=== PATIENT | female | born 1965 | race Caucasian/White ===

== ENCOUNTER 2016-10-15 07:08 | Day surgery (SDC) | payer BC ==
[2016-10-15] VITALS (7 sets, daily range): BP systolic 111–135; BP diastolic 64–80
[~2016-10-15] VITALS: Ht 162.6 cm; Wt 90.7 kg
[~2016-10-15 07:08] MED LIST: acetaminophen OR
[2016-10-15] MEDS ORDERED: LR 1,000 ML IV SCH ×3 (07:30→13:45)
[2016-10-15 07:38] LABS: MEAN CORPUSCULAR HEMOGLOBIN 29.6 pg (27.0-33.0); MEAN CORPUSCULAR VOLUME 89.5 fl (80.0-96.0); RED CELL DISTRIBUTION WIDTH 12.5 % (11.5-14.5); WHITE BLOOD COUNT 4.6 K/mm3 (4.0-10.0)
[2016-10-15] MEDS ORDERED: fentaNYL 100 MCG/2 ML INJECTION (J3010) As Ordered ONE ×2 (10:57→13:11)
[2016-10-15] MEDS ORDERED: MIDAZOLAM INJ 2 MG/2 ML VIAL (J2250) As Ordered ONE (10:57)
[2016-10-15] MEDS ORDERED: ONDANSETRON 4MG/2ML VIAL (J2405) As Ordered ONE (11:06)
[2016-10-15] MEDS ORDERED: ROCURONIUM BROMIDE 50 MG/5 ML VIAL As Ordered ONE (11:06)
[2016-10-15] MEDS ORDERED: METOCLOPRAMIDE INJ 10MG/2ML VIAL (J2765) As Ordered ONE (11:06)
[2016-10-15] MEDS ORDERED: LIDOCAINE 2% INJ 100 MG/5 ML SDV (FOR ANES.) As Ordered ONE (11:06)
[2016-10-15] MEDS ORDERED: KETOROLAC 60 MG/2 ML VIAL (J1885) As Ordered ONE (11:06)
[2016-10-15] MEDS ORDERED: dexameTHASONE 4 MG/ML 1ML VIAL (J1100) As Ordered ONE (11:06)
[2016-10-15] MEDS ORDERED: PROPOFOL 500 MG/50 ML VIAL As Ordered ONE (11:08)
[2016-10-15] MEDS ORDERED: HYDROmorphone HCL 2 MG/ML 1ML VIAL (J1170) As Ordered ONE (11:20)
[2016-10-15] MEDS ORDERED: MORPHINE PCA 1MG/ML 100ML CADD As Ordered ONE (13:11)
[2016-10-15] MEDS ORDERED: fentaNYL 100 MCG/2 ML INJECTION (J3010) IV PRN (13:45)
[2016-10-15] MEDS ORDERED: diphenhydrAMINE INJ 50MG/ML VIAL (J1200) IV PRN (13:45)
[2016-10-15] MEDS ORDERED: NALBUPHINE HCL 10 MG/ML AMP (J2300) IV PRN (13:45)
[2016-10-15] MEDS ORDERED: ONDANSETRON 4MG/2ML VIAL (J2405) IV PRN ×2 (13:45)
[2016-10-15] MEDS ORDERED: NALOXONE INJ 0.4 MG/1 ML VIAL (J2310) IV PRN (13:45)
[2016-10-15] MEDS: LR 1,000 ML IV SCH (13:45)
[2016-10-15] MEDS ORDERED: IBUPROFEN 600 MG TAB PO PRN ×2 (13:45→19:00)
[2016-10-15] MEDS ORDERED: PERCOCET 5MG/325MG TAB PO PRN (13:45)
[2016-10-15] MEDS ORDERED: MORPHINE PCA 1MG/ML 100ML CADD IV PRN (13:45)
[2016-10-15] MEDS ORDERED: EPIDURAL/PCA KEYS XX PRN (13:45)
[2016-10-16] VITALS: BP 107/57
[2016-10-16] MEDS: LR 1,000 ML IV SCH ×2 (00:41→06:41)
[2016-10-16 04:00] VITALS: BP 111/55
[2016-10-16] MEDS ORDERED: NORCO, ANEXSIA 5/325MG TABLET (HYDROcodone/ACETAMINOPHEN) PO PRN (06:00)
--- NOTE | 2016-10-16 07:21 | RO ---
DATE OF PROCEDURE: 10/15/2016 PREPROCEDURE DIAGNOSES: Dysmenorrhea, menorrhagia, tender uterus. POSTPROCEDURE DIAGNOSES: Dysmenorrhea, menorrhagia, tender uterus with possible fundal fibroid or other finding. PROCEDURE: Total vaginal hysterectomy with bilateral salpingo-oophorectomy. SURGEON: Dr. Katrina Ryder. LUBE ATTENDANT: Gaby Ashford. ANESTHESIA: General endotracheal anesthesia. ESTIMATED BLOOD LOSS: BRIEF DESCRIPTION OF PROCEDURE AND FINDINGS: Sonia was brought to the operating room where sufficient general endotracheal anesthesia was induced. She was prepped, draped and positioned in the usual sterile fashion with the weighted speculum placed, the bladder emptied and the anterior aspect of the cervix grasped with single tooth tenaculum. The posterior aspect grasped with single tooth tenaculum as well and a circumferential incision was made around the base of the cervix. Sharp and blunt dissection were continued until the cardinal ligaments could be isolated, clamped, transected and ligated using #0 Vicryl suture which we used throughout. The uterosacrals were then clamped, transected and ligated and of course marked for later re-attachment to cuff and posterior reflection of the peritoneum entered. Dissection was continued anteriorly to enter into the peritoneum anteriorly so that the bladder could be displaced anteriorly and the rectum displaced posteriorly and then the uterine vasculature isolated at the lateral aspect of the uterus. It was carefully clamped, transected and ligated in a sequential fashion until the level of the utero-ovarian ligaments was reached. The uterus was fairly bulky and so we went ahead and continued the dissection through the broad ligament, through the round and utero-ovarian suspensory ligament and then removed the uterus and then went back to the pedicles and carefully using [place] clamps, brought the tubes and ovaries down and the infundibulopelvic ligaments were carefully clamped, transected and ligated and visually watched. There was dry pedicles at the infundibulopelvic. Both ovaries and tubes were attainable and were sent as had been the patient's hope and angle stitches of #0 Vicryl were then taken. Of course, the ureterosacrals were reattached and the vaginal cuff closed in a running locked stitch in the usual fashion with good support and hemostasis achieved. The procedure was then ended. Dawn was placed postoperatively. Estimated blood loss for the case was about 250. Fluid replacement was Crystalloid. Complications: None. CONDITION AND DISPOSITION: Sonia tolerated the procedure well and was recovering in the recovery room in good condition.
[2016-10-16 07:33] LABS: MEAN CORPUSCULAR HEMOGLOBIN 30.6 pg (27.0-33.0); MEAN CORPUSCULAR HGB CONC 33.9 g/dl (32.0-36.5); MEAN CORPUSCULAR VOLUME 90.1 fl (80.0-96.0); RED CELL DISTRIBUTION WIDTH 12.6 % (11.5-14.5); WHITE BLOOD COUNT 9.3 K/mm3 (4.0-10.0)
[2016-10-16 08:00] VITALS: BP 115/65
[2016-10-16] MEDS ORDERED: NORC5TAB PO (09:07)
[2016-10-16] MEDS ORDERED: MOTR200T44 PO (09:07)
== END 2016-10-16 09:40 | disposition home or self-care (01) ==
LOC: M SDC 07:08 → M PED 14:07 → M SDC 10-16 09:40
PROVIDERS: ATTEND Obstetrics & Gynecology
DX: N94.6 Dysmenorrhea, unspecified (principal); N92.0 Excessive and frequent menstruation with regular cycle; R06.83 Snoring; Z98.51 Tubal ligation status; Z87.891 Personal history of nicotine dependence; Z88.0 Allergy status to penicillin
CPT/HCPCS: 36415; 58262; 85027; 86850; 86900; 86901; 88309; 96374; J0690; J1100; J1170; J1885; J2250; J2405; J2765; J3010

== ENCOUNTER → 2017-07-30 | Outpatient (REF) | payer BC ==
[~2017-07-30] MED LIST changes: +MOTR200T44 PO; +NORC1TAB4 PO
[2017-07-30 12:30] LABS: BASO % 0.8 % (0.0-1.0); EOS # 0.2 10^3/uL (0.0-0.50); EOS % 3.1 % (0.0-3.0); LYMPH # 1.7 10^3/uL (1.5-4.5); LYMPH % 34.9 % (24.0-44.0); MEAN CORPUSCULAR HGB CONC 32.4 g/dl (32.0-36.5); MEAN CORPUSCULAR VOLUME 92.3 fl (80.0-96.0); MONO # 0.5 10^3/uL (0.0-0.8); MONO % 9.6 % (0.0-5.0); NEUTROPHILS # 2.5 10^3/uL (1.8-7.7); NEUTROPHILS % 51.6 % (36.0-66.0); PLATELET COUNT, AUTOMATED 260 10^3/uL (150-450); RED CELL DISTRIBUTION WIDTH 13.7 % (11.5-14.5); WHITE BLOOD COUNT 4.8 10^3/uL (4.0-10.0)
[2017-07-30 13:01] LABS: ALBUMIN 3.7 GM/DL (3.2-5.2); ALBUMIN/GLOBULIN RATIO 1.03 (1.00-1.93); ALKALINE PHOSPHATASE 122 U/L (45-117); ALT/SGPT 26 U/L (12-78); ANION GAP 6 MEQ/L (8-16); AST/SGOT 19 U/L (7-37); BILIRUBIN,TOTAL 0.4 MG/DL (0.2-1.0); BLOOD UREA NITROGEN 10 MG/DL (7-18); CALCIUM LEVEL 8.9 MG/DL (8.5-10.1); CARBON DIOXIDE LEVEL 28 MEQ/L (21-32); CHLORIDE LEVEL 107 MEQ/L (98-107); CREATININE FOR GFR 0.99 MG/DL (0.55-1.02); FREE T4 1.05 NG/DL (0.76-1.46); GLOMERULAR FILTRATION RATE > 60.0 (>51); GLUCOSE, FASTING 92 MG/DL (70-105); POTASSIUM SERUM 4.4 MEQ/L (3.5-5.1); SODIUM LEVEL 141 MEQ/L (136-145); TOTAL PROTEIN 7.3 GM/DL (6.4-8.2)
[2017-07-30 13:53] LABS: CONTROL LINE MONO RF C INT CTR LINE PRESENT
[2017-08-01 00:06] LABS: Lyme Disease IgG/IgM Antibodie <0.91 ISR (0.00-0.90); Lyme Disease IgM Ab Quantitati <0.80 index (0.00-0.79)
== END ==
LOC: M LABDRWAD 12:03
PROVIDERS: ATTEND Physician Assistant Medical
DX: R51 Headache (principal)

== ENCOUNTER → 2017-10-19 | Outpatient (CLI) | payer BC ==
[2017-10-19 08:07] LABS: CHOLESTEROL LEVEL 161 MG/DL (<200); CHOLESTEROL RISK RATIO 2.875 (<5); HDL CHOLESTEROL 56 MG/DL (>40); LDL CHOLESTEROL 91.2 MG/DL (<100); NON-HDL-C 105 MG/DL; TRIGLYCERIDES LEVEL 69 MG/DL (<150)
[2017-10-19 08:33] LABS: TOTAL 25(OH) VITAMIN D 18.3 NG/ML (30.0-100.0)
[2017-10-19 08:49] LABS: ESTIMATED AVERAGE GLUCOSE 126 MG/DL (60-110)
== END ==
LOC: M LAB 07:04
DX: E66.01 Morbid (severe) obesity due to excess calories (principal); R51 Headache
CPT/HCPCS: 83036

== ENCOUNTER → 2019-08-22 | Outpatient (CLI) | payer BC ==
[~2019-08-22] MED LIST changes: -NORC1TAB4 PO; +NORC1TAB7 PO
--- NOTE | 2019-08-22 14:59 | REP ---
Clinical: Pain. Technique: AP, lateral, bilateral oblique views of the left foot. Findings: Generalized age-related changes are appreciated primarily involving the midfoot. Lateral view demonstrates small calcaneal heal spur. No acute fracture dislocation. Metatarsal and interphalangeal joints appear normal. Impression: Essentially age-appropriate examination. Electronically Signed by Anjel Ortiz MD 08/22/2019 02:51 P
[2019-08-22 17:07] LABS: BASO % 0.6 % (0.0-1.0); EOS # 0.2 10^3/uL (0.0-0.5); EOS % 2.6 % (0.0-3.0); HEMATOCRIT 40.5 % (36.0-47.0); HEMOGLOBIN 13.3 g/dl (12.0-15.5); LYMPH # 2.2 10^3/uL (1.5-5.0); LYMPH % 35.1 % (24.0-44.0); MEAN CORPUSCULAR HEMOGLOBIN 30.7 pg (27.0-33.0); MEAN CORPUSCULAR HGB CONC 32.8 g/dl (32.0-36.5); MEAN CORPUSCULAR VOLUME 93.5 fl (80.0-96.0); MONO # 0.6 10^3/uL (0.0-0.8); MONO % 9.1 % (0.0-5.0); NEUTROPHILS # 3.2 10^3/uL (1.5-8.5); NEUTROPHILS % 52.4 % (36.0-66.0); PLATELET COUNT, AUTOMATED 273 10^3/uL (150-450); RED BLOOD COUNT 4.33 10^6/uL (4.00-5.40); WHITE BLOOD COUNT 6.2 10^3/uL (4.0-10.0)
[2019-08-22 17:29] LABS: CALCIUM LEVEL 8.7 MG/DL (8.5-10.1); CREATININE FOR GFR 1.1 MG/DL (0.55-1.30); GLOMERULAR FILTRATION RATE 55.5 (>51); POTASSIUM SERUM 4.1 MEQ/L (3.5-5.1); URIC ACID 5.2 MG/DL (2.6-6.0)
== END ==
LOC: M ADAMS 14:20
PROVIDERS: ATTEND Physician Assistant Medical
DX: M79.672 Pain in left foot (principal)

== ENCOUNTER → 2020-03-11 | Outpatient (REF) | payer BC ==
[2020-03-11 13:32] LABS: BASO % 0.7 % (0.0-1.0); EOS # 0.1 10^3/uL (0.0-0.5); EOS % 2.6 % (0.0-3.0); HEMATOCRIT 42.6 % (36.0-47.0); HEMOGLOBIN 13.8 g/dl (12.0-15.5); LYMPH # 1.6 10^3/uL (1.5-5.0); LYMPH % 28.8 % (24.0-44.0); MEAN CORPUSCULAR HEMOGLOBIN 30.5 pg (27.0-33.0); MEAN CORPUSCULAR HGB CONC 32.4 g/dl (32.0-36.5); MEAN CORPUSCULAR VOLUME 94.2 fl (80.0-96.0); MONO # 0.5 10^3/uL (0.0-0.8); MONO % 9.1 % (0.0-5.0); NEUTROPHILS # 3.2 10^3/uL (1.5-8.5); NEUTROPHILS % 58.6 % (36.0-66.0); PLATELET COUNT, AUTOMATED 259 10^3/uL (150-450); RED BLOOD COUNT 4.52 10^6/uL (4.00-5.40); WHITE BLOOD COUNT 5.5 10^3/uL (4.0-10.0)
[2020-03-11 13:49] LABS: ALBUMIN 3.8 GM/DL (3.2-5.2); ALT/SGPT 29 U/L (12-78); BILIRUBIN,TOTAL 0.4 MG/DL (0.2-1.0); BLOOD UREA NITROGEN 14 MG/DL (7-18); CARBON DIOXIDE LEVEL 26 MEQ/L (21-32); CHLORIDE LEVEL 109 MEQ/L (98-107); CHOLESTEROL LEVEL 157 MG/DL (<200); CREATININE FOR GFR 0.92 MG/DL (0.55-1.30); GLOMERULAR FILTRATION RATE > 60.0 (>51); GLUCOSE, FASTING 95 MG/DL (70-100); HDL CHOLESTEROL 48 MG/DL (>40); LDL CHOLESTEROL 98 MG/DL (<100); NON-HDL-C 109 MG/DL; POTASSIUM SERUM 4.3 MEQ/L (3.5-5.1); SODIUM LEVEL 141 MEQ/L (136-145); TOTAL 25(OH) VITAMIN D 28.4 NG/ML (30.0-100.0); TOTAL PROTEIN 7.3 GM/DL (6.4-8.2); TRIGLYCERIDES LEVEL 53 MG/DL (<150)
== END ==
LOC: M SFHCADAM 08:59
PROVIDERS: ATTEND Physician Assistant Medical
DX: E66.01 Morbid (severe) obesity due to excess calories (principal); Z68.35 Body mass index [BMI] 35.0-35.9, adult; E55.9 Vitamin D deficiency, unspecified; Z83.3 Family history of diabetes mellitus

== ENCOUNTER → 2022-02-03 | Outpatient (CLI) | payer BC ==
[2022-02-04 06:08] LABS: MUMPS VIRUS IgG ANTIBODY 99.2 AU/mL (Immune >10.9)
== END ==
LOC: M WUC 10:08
PROVIDERS: ATTEND Physician Assistant
DX: Z02.1 Encounter for pre-employment examination (principal)